=== PATIENT | male | born 1970 | race Caucasian/White ===

== ENCOUNTER 2018-03-07 00:16 | Emergency (ER) | payer OTHER, SELFPAY ==
[2018-03-07] MEDS ORDERED: Ibuprofen 800 MG TAB ONE (01:14)
--- NOTE | 2018-03-07 10:32 | RAD ---
LEFT FOOT 3 VIEWS: Date: 03/07/18 HISTORY: 47-year-old male with history of left foot injury from trauma. FINDINGS/IMPRESSION: Mild degenerative changes. No acute fracture or dislocation. POS: [facility]
--- NOTE | 2018-03-07 10:33 | RAD ---
RIGHT ELBOW 4 VIEWS: Date: 03/07/18 HISTORY: 47-year-old male with history of right elbow injury from trauma. FINDINGS/IMPRESSION: No fracture, dislocation, joint effusion, or other acute process. POS: [facility]
--- NOTE | 2018-03-07 10:34 | RAD ---
RIGHT WRIST 4 VIEWS: Date: 03/07/18 HISTORY: 47-year-old male with history of right wrist injury from trauma. FINDINGS/IMPRESSION: No fracture, dislocation, or other significant acute osseous abnormality. If patient has persistent or worsening unexplained pain, follow-up study in 5-7 days might be of bene fit. POS: [facility]
== END 2018-03-07 01:45 | disposition home or self-care (01) ==
LOC: ERS 00:16
DX: S63.501A Unspecified sprain of right wrist, initial encounter (principal); S93.602A Unspecified sprain of left foot, initial encounter; V89.2XXA Person injured in unspecified motor-vehicle accident, traffic, initial encounter